=== PATIENT | female | born 1950 | race Caucasian/White ===

== ENCOUNTER 2016-12-25 15:20 | Emergency (ER) | payer MEDICARE, OTHER ==
--- NOTE | ~2016-12-25 | DS ---
Discharge Summary [facility] [address] [facility] [place]. [address] NAME: SARI GONZALEZ : 46 STATUS : [facility] PAT#: [id number] AGE: 66 ADM/REG DATE : 12/25/16 MR#: [id number] REPORT SERV DATE: 12/25/16 DICTATED BY: SANTHOSH PEÑA DATE: 12/25/16 REPORT STATUS : Draft TRANSCRIBED BY: PADMAJA DATE: 12/25/16 ADMISSION DATE: 12/25/2016 DISCHARGE DATE: SARI GONZALEZ LEAVING AGAINST MEDICAL ADVICE The patient presented to emergency room earlier during the day today, and the patient was seen by me at 6:30 p.m. She had written all the orders. She was complaining of abdominal pain as well as she was dehydrated as well as her admission diagnosis was mild acute kidney injury, dehydration, abdominal pain, recent weight gain with some shortness of breath, and anemia. The patient was seen and examined, and all her orders were written, and she was waiting for a bed, and she also had a CT of the abdomen and pelvis done today in the emergency room one hour ago but somehow, she went into argument with the nurse and she did not like the emergency room nurse so she said that she cannot stay so long in the emergency room although she already had a bed assigned and they were ready to take her to the hospital room. The patient decided to leave hospital and the nurse gave her to sign a form that she is leaving against medical advice. The patient signed a form that she is leaving against medical advice. I also saw the patient. The patient told me that she does not want to stay anymore because she is tired and she wants to go home. I explained to her that she needs to have evaluation why she is dehydrated and why she is having abdominal pain. I also told her that CT of the abdomen is done but not read yet, and she needs to at least wait until the CT of the abdomen and pelvis results are done. The patient said that she does not want to wait, she understands that it may put her life under danger, but she is going to leave right now because her aide is coming to pick her up. Nurse was also at the bedside. She basically gave her form to sign that she is leaving against medical advice. Form against medical advice was signed, and the patient left against medical advice. /MODL Santhosh Peña M.D. / [id number] CC: Umer Chiu M.D.
--- NOTE | ~2016-12-25 | HP ---
History And Physical [facility] [address] [facility] [place]. [address] NAME: SARI GONZALEZ : 46 STATUS : REG ER PAT#: [id number] AGE: 66 ADM/REG DATE : 12/25/16 MR#: [id number] REPORT SERV DATE: 12/25/16 DICTATED BY: SANTHOSH PEÑA DATE: 12/25/16 REPORT STATUS : Draft TRANSCRIBED BY: MODL DATE: 12/25/16 DATE OF ADMISSION: 12/25/2016 HISTORY OF PRESENT ILLNESS: The patient is a very pleasant 66-year-old female, who presented to [facility] with complaints of abdominal pain started today as well as shortness of breath and concern of weight gain. The patient initially was seen by emergency room physician, Dr. Ennis. The patient reports that she used to see [facility], but because of she moved to [place], she had to change her doctor and now she is going to a clinic in [place], [place], and she said that this morning she had abdominal pain across her belly and across her upper abdomen, but she said that she had a bowel movement this morning, but the pain was still present there. She said that here in the emergency room they gave her morphine and the pain improved. She also reported that she had a weight gain over the last month and she does not know why she is gaining weight. She said that she had swollen legs, she was placed on Lasix, she was complaining of shortness of breath. According to Dr. Ennis's report, the patient initially had some wheezing, but she denies any cough. She said that she cannot lay flat because of difficulty breathing, although she said it could be also her previous surgeries. She does not have cough. She denies any fever, no headache. She said that she has history of heart palpitations, but she never had a history of congestive heart failure. She denies any black stool as well. REVIEW OF SYSTEMS: All 14-point review of systems done and negative except what is stated in the history of present illness. PAST MEDICAL HISTORY: The patient reports that many years ago she was told that she had stomach ulcers by GI physician, but she cannot remember who was that physician. Also she has history of hypertension and osteoarthritis, history of heart palpitations, recent shortness of breath. She denies any history of diabetes. No history of coronary artery disease. She denies any history of congestive heart failure. PAST SURGICAL HISTORY: Includes at a younger age, she had surgery for endometriosis, eight surgeries with total hysterectomy as well as history of appendectomy during hysterectomy, right shoulder repair, left knee surgery. She said that after left knee surgery and infection in the left knee, she was in ICU, almost was in coma. SOCIAL HISTORY: She used to smoke three packs per day, now she cut down to half pack per day. She denies any use of alcohol. She has five children, but she lives alone in an apartment. She said that she does not see her children very often. FAMILY HISTORY: She said that her father of old age and her mother, she does not know why she , she said that she just did not want to live. Also, the patient reports that one physician told her that one of her kidneys is not functioning very well, but she did not say what kidney and they did not do imaging study. HOME MEDICATIONS: Include albuterol two puffs inhaled q.4 hours p.r.n., Xanax 1 mg p.o. History And Physical [address] [address] NAME: SARI GONZALEZ : 46 STATUS : REG ER PAT#: [id number] AGE: 66 ADM/REG DATE : 12/25/16 MR#: [id number] REPORT SERV DATE: 12/25/16 DICTATED BY: SANTHOSH PEÑA DATE: 12/25/16 REPORT STATUS : Draft TRANSCRIBED BY: PADMAJA DATE: 12/25/16 three times daily p.r.n., amitriptyline 50 mg at bedtime, Lasix 20 mg daily p.r.n., lisinopril with HCTZ 20/25 daily, she used to take atenolol but it was recently replaced to metoprolol 25 mg p.o. b.i.d., ranitidine 150 mg p.o. twice a day. ALLERGIES: LISTED OPIOIDS, IBUPROFEN, AND MEPERIDINE. PHYSICAL EXAMINATION: GENERAL: Well-nourished, well-developed female, not in acute distress. Resting quietly. VITAL SIGNS: Blood pressure 132/62, temperature 98, heart rate was 101, respirations 16, and oxygen saturation 97% on room air. HEENT: Head is atraumatic, normocephalic. Conjunctivae clear. Pupils are equal and reactive to light and accommodation. Extraocular muscles are intact. NECK: Supple. Trachea is midline. No supraclavicular or cervical lymphadenopathy. LUNGS: Diminished breath sounds bilaterally. Decreased respiratory effort. No wheezing. CARDIOVASCULAR: Regular rate and rhythm. Point of maximal impulse not displaced. ABDOMEN: Soft. There is mild tenderness to palpation in the periumbilical area and right upper quadrant, but this is very mild, looks like skin soreness. There is no guarding, no rebound. Completely benign abdominal examination. Positive normoactive bowel sounds. EXTREMITIES: No clubbing, cyanosis, or edema. SKIN: Normal color and turgor. PSYCHIATRIC: Normal mood and affect. LABORATORY RESULTS: PT 12.8. INR is 1. Sodium is 139, potassium 4.9, chloride 107, carbon dioxide 24, BUN 43, creatinine 1.69, blood sugar 126. Troponin less than 0.02. Lipase 138, magnesium 2.4, calcium was 9.1. White count 10.3, hemoglobin 11.1, hematocrit 34.8, and platelet count 347. Chest x-ray showed minimal basilar atelectasis, otherwise no acute cardiopulmonary abnormality. EKG shows sinus tachycardia with a rate of 101, otherwise negative EKG. ASSESSMENT AND PLAN: This is a very pleasant 66-year-old female, who presented with, 1. Abdominal pain with one day duration. 2. Anemia. 3. Acute kidney injury, question likely secondary to dehydration. 4. Shortness of breath on lying flat, question of possible congestive heart failure. 5. Recent weight gain, possible congestive heart failure versus other intra-abdominal problems. 6. History of hypertension. We will admit the patient in observation status to cardiac telemetry bed. For her abdominal pain, I will order CT of the abdomen and pelvis without contrast and we will put her on full liquid diet and see how if she will be able to tolerate her food. Anemia. We will check stool Hemoccult x3. The patient denied any black stools and we will also check serum B12, folate level, serum iron, ferritin, total iron binding capacity. With acute kidney injury, we will give her IV fluid hydration but very gentle for 6 hours History And Physical [address] [address] NAME: SARI GONZALEZ : 46 STATUS : REG ER PAT#: [id number] AGE: 66 ADM/REG DATE : 12/25/16 MR#: [id number] REPORT SERV DATE: 12/25/16 DICTATED BY: SANTHOSH PEÑA DATE: 12/25/16 REPORT STATUS : Draft TRANSCRIBED BY: PADMAJA DATE: 12/25/16 and we will recheck her creatinine tomorrow as well as we will check her urinalysis. Question if she has COPD, she is a long-term smoker. She was already given one dose of Solu Medrol in the emergency room, but she does not have any wheezing. We will just monitor her for symptoms and give her DuoNeb breathing treatment. Regarding possible congestive heart failure and weight gain, I will order echocardiography on this patient and before echocardiogram, we will check her BNP as well as her troponins. I would like to mention that she does not have any chest pain. The patient will be in observation status and my partner will see her starting tomorrow morning. /PADMAJA Santhosh Peña M.D. / [id number]
[~2016-12-25 15:20] MED LIST: ATEN50 PO; L20 PO; MELATONIN5 M1 PO; PRAVACHOL40 MG PO; PRINZIDE1 TAB PO; SUBOXONE 8 MG-1 EAC1 SL; VALIUM10 MG PO; ZANTAC150 MG PO
[2016-12-25 17:12] LABS: BASOPHILS 0.4 %; BASOPHILS ABSOLUTE 0.04 10/3/uL (0.0-0.16); EOSINOPHILS 2.5 %; EOSINOPHILS ABSOLUTE 0.26 10/3/uL (0.0-0.53); IMMATURE GRANULOCYTES 0.3 %; IMMATURE GRANULOCYTES ABSOLUTE 0.03 10/3/uL (0.0-0.11); LYMPHOCYTES ABSOLUTE 2.67 10/3/uL (0.67-4.30); MEAN CORPUS HGB CONC 31.9 g/dL (32.0-36.0); MEAN CORPUSCULAR HEMOGLOB 28.5 pg (26.0-34.0); MEAN PLATELET VOLUME 8.7 fL (9.2-13.0); MONOCYTES 5.3 %; MONOCYTES ABSOLUTE 0.54 10/3/uL (0.21-1.20); NEUTROPHILS 65.5 %; NEUTROPHILS ABSOLUTE 6.73 10/3/uL (2.02-8.40); PLATELET COUNT 347 10/3/uL (150-400); RBC DISTRIBUTION WIDTH 17.4 % (12.0-16.0)
[2016-12-25 17:13] LABS: HEMATOCRIT 34.8 % (36.0-48.0); HEMOGLOBIN 11.1 g/dL (12.0-16.0); MANUAL DIFF NO %; MEAN CORPUSCULAR VOLUME 89.2 fL (80-100); WHITE BLOOD CELLS 10.3 10/3/uL (4.5-10.5)
[2016-12-25 17:19] LABS: PARTIAL THROMBO TIME 27.4 SEC (22.5-37.2); PROTIME (NOT ORD) 12.8 SEC (12.0-14.5)
[2016-12-25 17:28] LABS: CALCIUM, SERUM 9.1 MG/DL (8.5-10.4); CHEST PAIN PROFILE TAT 0 Hrs 21 Mins; CHLORIDE, SERUM 107 MMOL/L (96-112); POTASSIUM, SERUM 4.9 MMOL/L (3.5-5.3); SODIUM, SERUM 139 MMOL/L (135-148); TROPONIN I <0.02 NG/ML (<0.05)
[2016-12-25 17:29] LABS: BUN (BLOOD UREA NITROGEN) 43 MG/DL (6-23); CO2 (CARBON DIOXIDE) 24 MMOL/L (24-34); CREATININE 1.69 MG/DL (0.55-1.02); GFR AFRICAN AMERICAN 36 ML/MIN (>=60); GFR NON AFRICAN AMERICAN 31 ML/MIN (>=60); GLUCOSE, SERUM 126 MG/DL (60-99)
[2016-12-25] MEDS ORDERED: AMIT50 PO (17:51)
[2016-12-25] MEDS ORDERED: XANAX1 MG PO (17:51)
[2016-12-25] MEDS ORDERED: LOP25 PO (17:51)
[2016-12-25] MEDS ORDERED: ZANTAC 150 PO (17:52)
[2016-12-25] MEDS ORDERED: L20 PO (17:52)
[2016-12-25] MEDS ORDERED: ZESTORETIC1 TA1 PO (17:53)
[2016-12-25] MEDS ORDERED: PROVHFA INH (17:54)
== END 2016-12-25 20:46 | disposition left against medical advice (07) ==
LOC: ER 15:20 → 7NO 20:18 → ER 20:18
PROVIDERS: Hospitalist
DX: J44.9 Chronic obstructive pulmonary disease, unspecified (principal); N17.9 Acute kidney failure, unspecified; R10.13 Epigastric pain; F17.200 Nicotine dependence, unspecified, uncomplicated; I10 Essential (primary) hypertension; Z90.710 Acquired absence of both cervix and uterus; Z96.652 Presence of left artificial knee joint; Z88.5 Allergy status to narcotic agent; Z88.6 Allergy status to analgesic agent
CPT/HCPCS: 71010; 74176; 80048; 83690; 83735; 84484; 85025; 85610; 85730; 93005; 94640; 96374; 96375; 99285; J2405; J2930